=== PATIENT | male | born 2000 | race Caucasian/White ===

== ENCOUNTER 2019-03-21 09:50 | Emergency (ER) | payer OTHER ==
[2019-03-21] MEDS ORDERED: levETIRAcetam 500 MG/100 ML PREMIX BAG ONE (09:53)
[2019-03-21] MEDS ORDERED: Ketamine 50 MG/ML (10ML VIAL) ONE (09:53)
[2019-03-21] MEDS ORDERED: Lorazepam 2 MG/ML VIAL ONE (10:00)
[2019-03-21] MEDS ORDERED: Ondansetron PF 4 MG/2 ML Vial ONE (10:00)
[2019-03-21] MEDS ORDERED: levETIRAcetam In NaCl (Iso-Os) 1,000 MG in Premix Bag 1 BAG IVPB SCH (10:15)
[2019-03-21 10:19] LABS: #Basophils 0.1 thou/uL (0.0-0.2); #Eosinphils 0.1 thou/uL (0.0-0.7); #Lymphocytes 2.8 thou/uL (1.20-3.40); #Monocytes 0.6 thou/uL (0.11-0.59); #Neutrophils 4.5 thou/uL (1.40-6.50); %Basophils 0.7 % (0.0-1.0); %Eosinophils 1.3 % (0.0-10.0); %Lymphocytes 34.6 % (28.0-48.0); %Monocytes 7.4 % (0.0-4.0); %Neutrophils 56.1 % (31.0-61.0); Hemoglobin 14.9 g/dL (14.0-18.0); Mean Corpuscular HGB CONC 33.7 g/dL (32.0-36.0); Mean Corpuscular Hemoglobin 31.5 pg (25.0-35.0); Mean Corpuscular Volume 93.6 fL (78.0-98.0); Mean Platelet Volume 7.7 fL (7.4-10.4); Platelet Count 331 thou/uL (130-400); RBC Distribution Width 11.8 % (11.5-14.5); Red Blood Cell (RBC) Count 4.73 mill/uL (4.00-5.20)
[2019-03-21 10:40] LABS: ALT (SGPT) 12 U/L (8-55); AST (SGOT) 20 U/L (5-34); Acetaminophen Less than 6.0 mcg/mL (10.0-30.0); Albumin 4.6 g/dL (3.5-5.0); Alcohol 81 mg/dL (Less than 10); Alkaline Phosphatase 76 U/L (50-130); Anion Gap 20 mmol/L (10-20); BUN (Urea Nitrogen) 13 mg/dL (8.9-20.6); Bilirubin, Total 0.5 mg/dL (0.2-1.2); CK (CPK) 94 U/L (30-200); Calc. Creatinine Clearance 0 mL/min (70-130); Calcium 9.5 mg/dL (7.8-10.44); Carbon Dioxide 21 mmol/L (22-29); Chloride 106 mmol/L (98-107); Estimated GFR-MDRD Greater than 90; Globulin 2.8 g/dL (2.4-3.5); Glucose 96 mg/dL (70-105); Lipase 9 U/L (8-78); Potassium 4.5 mmol/L (3.5-5.1); Protein, Total 7.4 g/dL (6.0-8.3); Salicylate Less than 8.0 mg/dL (15.0-30.0); Sodium 142 mmol/L (136-145)
--- NOTE | 2019-03-21 10:43 | CT ---
CT Brain WO Con History: Seizure Comparison: None. Findings: No acute hemorrhage or infarct. No midline shift or mass effect. Ventricular size and extra -axial CSF spaces are normal. Calvarium is intact. Paranasal sinuses and mastoids are clear. Normal location of the temporomandibul ar joints. Globes are intact. Impression: No acute posttraumatic intracranial sequelae.
--- NOTE | 2019-03-21 10:45 | CT ---
CT Cervical Spine WO Con History: Trauma Comparison: None. Findings: The odontoid process is intact. The occipital condyles are intact. No acute fracture or mal alignment. No acute traumatic facet joint widening. Lung apices are clear. Paraspinal soft tissues are unremarkable. Transverse processes are intact. Impression: No acute fracture or malalignment of the cervical spine.
--- NOTE | 2019-03-21 11:13 | RAD ---
PORTABLE CHEST 1 VIEW: Date: 03/21/19 Time: 1048 hours HISTORY: Seizure. Altered mental status. FINDINGS: The heart size is normal. No focal areas of consolidation, pneumothoraces, or pleural effusions are s een. IMPRESSION: No acute process. POS: OFF
[2019-03-21] MEDS ORDERED: Multivitamins, Adult 10 ML, Thiamine HCl 100 MG, Folic Acid 1 MG in Dextrose 5 %-0.45 %... IV SCH (12:00)
[2019-03-21] MEDS ORDERED: Acetaminophen 500 MG TAB ONE (12:16)
[2019-03-22] MEDS ORDERED: Multivitamins, Adult 10 ML, Thiamine HCl 100 MG, Folic Acid 1 MG in Dextrose 5 %-0.45 %... IV SCH (09:00)
== END 2019-03-21 15:40 | disposition home or self-care (01) ==
LOC: ERS 09:50
DX: F10.129 Alcohol abuse with intoxication, unspecified (principal); S09.90XA Unspecified injury of head, initial encounter; R45.6 Violent behavior; R56.9 Unspecified convulsions; X58.XXXA Exposure to other specified factors, initial encounter; Y90.4 Blood alcohol level of 80-99 mg/100 ml
CPT/HCPCS: 36415; 51702; 70450; 71045; 72125; 80053; 80307; 82140; 82550; 83690; 84146; 85025; 96361; 96365; 96366; 96368; 96375; 96376; J1953; J2060; J2405; J3411; J7042